=== PATIENT | female | born 1950 | race Caucasian/White ===

== ENCOUNTER → 2017-12-09 | Outpatient (CLI) | payer OTHER ==
[~2017-12-09] MED LIST: ANT25 PO; DIAZ2TAB PO; DVN80 PO; GLC500 PO; HYG25 PO; METO100T44 PO; PRLSR20 PO
--- NOTE | 2017-12-09 12:03 | DIAGNOSTIC IMAGING REPORT ---
RIGHT ELBOW 3 VIEWS CLINICAL HISTORY: Right elbow pain. FINDINGS: 3 views of the right elbow are obtained. No prior studies are available for comparison at the time of dictation. The skeletal structures are osteopenic. No fracture is seen. The joint spaces are preserved. Enthesophytes arise from the medial and lateral humeral epicondyle. There is mild degenerative spurring along the radial head. No joint effusion is seen. The overlying soft tissues are within normal limits. IMPRESSION: Mild degenerative change as above. No acute osseous abnormality is seen. Electronically signed by: Hubert Hauser M.D. 12/09/2017 12:01 PM Dictated Date/Time: 12/09/2017 12:01 PM
== END | disposition home or self-care (01) ==
LOC: C.RDSM 11:25
PROVIDERS: ATTEND Physician Assistant
DX: M25.511 Pain in right shoulder (principal)